=== PATIENT | male | born 1980 | race Caucasian/White ===

== ENCOUNTER → 2017-10-17 | Emergency (ER) | payer OTHER ==
[~2017-10-17] VITALS: Ht 177.8 cm; Wt 112.5 kg
[~2017-10-17] MED LIST: IBUPROFEN800 MG PO; INDOMETHACIN25 MG
== END | disposition home or self-care (01) ==
LOC: ER 07:54
DX: S62.115A Nondisplaced fracture of triquetrum [cuneiform] bone, left wrist, initial encounter for closed fracture (principal); S63.592A Other specified sprain of left wrist, initial encounter; X50.3XXA Overexertion from repetitive movements, initial encounter; Y93.89 Activity, other specified; Y92.89 Other specified places as the place of occurrence of the external cause; Y99.8 Other external cause status